=== PATIENT | male | born 1975 | race Caucasian/White ===

== ENCOUNTER 2017-02-25 15:28 | Emergency (ER) | payer OTHER ==
[~2017-02-25] VITALS: Ht 180.3 cm; Wt 90.9 kg
[2017-02-25 15:37] VITALS: BP 116/72
--- NOTE | 2017-02-25 17:50 | PHYS DOC ---
General Chief Complaint: INSECT BITE Stated Complaint: INSECT BITES Time Seen by MD: 17:47 Source: patient Exam Limitations: no limitations Problems: History of Present Illness Initial Comments Patient is a 41-year-old male who comes the ED complaining of insect bites. Patient states that this past week he was camping in the [facility] and hiking with his . At one point his left foot fell into a hole for weeks. He says when he pulled his foot out his leg was covered with a tiny red insects he assumed were chiggers. Since that time he's had itchy red bites which form vesicles drain scattered over his essentially lower half of his body. He denies any trouble breathing hoarseness or mouth swelling but does complain of pain and itching. His tetanus is up-to-date he denies any tick bites no arthralgias or myalgias no fever chills. [id number] Benadryl is not helping adequately. He has come to the emergency department for some relief. ED vitals are stable Timing/Duration: 1 week Severity: severe Modifying Factors: improves with cold therapy Associated Symptoms: rash Allergies: Coded Allergies: No Known Drug Allergies (Unverified , 02/25/17) Past Medical History Medical History: no pertinent history Surgical History: no surgical history Social History Smoker: non-smoker Alcohol: none Drugs: none Review of Systems Constitutional: denies chills, denies diaphoresis, denies fever, denies malaise EENTM: denies throat swelling, denies mouth swelling Respiratory: denies cough, denies shortness of breath Cardiovascular: denies chest pain, denies palpitations Gastrointestinal: denies abdominal pain, denies nausea, denies vomiting Musculoskeletal: denies back pain, denies joint swelling, denies neck pain Skin: see HPI Psychiatric/Neurological: denies headache, denies numbness, denies paresthesia Physical Exam General Appearance: WD/WN, mild distress Eyes: bilateral eye normal inspection, bilateral eye PERRL, bilateral eye EOMI Ear, Nose, Throat: hearing grossly normal, normal ENT inspection, normal pharynx Neck: non-tender, supple Respiratory: normal breath sounds, no respiratory distress Cardiovascular: normal peripheral pulses Back: normal inspection, no vertebral tenderness Extremities: normal range of motion, no pedal edema 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 Some are still in vesicular warm others are scabbed. There is no evidence of bacterial superinfection there is no induration or fluctuance no subcutaneous masses. No foreign bodies noted no cellulitic changes.) Orders, Labs, Meds I discussed the treatment plan patient requests to be treated and discharged home see departure for instructions. Departure Time of Disposition: 17:48 Disposition: HOME, SELF-CARE Diagnosis: insect sting allergy Condition: STABLE Patient Instructions: Insect Sting Allergy Additional Instructions: Off work through Monday. Remain in a cool temperature environment for optimal symptom control. [id number] Pepcid and Benadryl while taking prednisone. Prescription: Prednisone, [place] 5 mg #20 Take medications with food to avoid nausea and vomiting. Follow-up with your doctor on Monday for recheck. Return to ED with new or changing symptoms. AUDIE ROBLEDO DO Feb 25, 2017 17:50
[2017-02-25] MEDS ORDERED: HYDR-971 PO (17:51)
[2017-02-25] MEDS ORDERED: PRED20TA PO (17:51)
[2017-02-25] MEDS ORDERED: diphenhydrAMINE HCL 25 MG CAPSULE PO ONE (17:59)
[2017-02-25] MEDS ORDERED: ONDANSETRON ODT 4 MG TAB.RAPDIS PO ONE (18:00)
[2017-02-25] MEDS ORDERED: diphenhydrAMINE HCL 50 MG CAPSULE PO ONE (18:00)
[2017-02-25] MEDS ORDERED: oxyCODONE/APAP 10/325 1 TAB TABLET PO ONE (18:00)
[2017-02-25] MEDS ORDERED: methylPREDNISolone SOD SUCC PF 125 MG/2 ML VIAL. IM ONE (18:00)
== END 2017-02-25 18:25 | disposition home or self-care (01) ==
LOC: ER 15:28
DX: S90.872A Other superficial bite of left foot, initial encounter (principal); B88.0 Other acariasis; W57.XXXA Bitten or stung by nonvenomous insect and other nonvenomous arthropods, initial encounter; Y93.89 Activity, other specified; Y99.8 Other external cause status; Y92.89 Other specified places as the place of occurrence of the external cause
CPT/HCPCS: 96372; 99283; J2930; Q0162